=== PATIENT | female | born 1960 | race Caucasian/White ===

== ENCOUNTER → 2019-04-06 | Outpatient (CLI) | payer BC ==
[~2019-04-06] MED LIST: ACCUPRIL20TAB PO; ASPIRIN 81M81 MG/TA2 PO; EYE DROP TEARS15 ML OU; FLONASEALLERGY NS; FOLIC ACID 11 MG/TA1 PO; GLUCOPHAGE500 MG/TAB PO; METHOTREXA2.5 MG/TAB PO; NORCO 325 MG-7.1 TAB PO; PRILOSEC 20MG20 MG PO; SIMCOR 1000 MG-1 TER PO
== END ==
LOC: COL.VAS 10:00
DX: M34.9 Systemic sclerosis, unspecified (principal)